=== PATIENT | female | born 1980 | race Caucasian/White ===

== ENCOUNTER 2016-09-11 01:58 | Emergency (ER) | payer MEDICAID ==
[2016-09-11] MEDS ORDERED: DIPHENHYDRAMINE HCL 50 MG CAPSULE PO ONE (02:39)
[2016-09-11 03:43] LABS: ABSOLUTE BASOPHILS # (AUTO) 0.1 10^3/uL (0.0-0.2); ABSOLUTE EOSINOPHILS # (AUTO) 0.1 10^3/uL (0.0-0.6); ABSOLUTE LYMPHOCYTES (AUTO) 2.1 10^3/uL (0.5-4.7); ABSOLUTE MONOCYTES (AUTO) 0.7 10^3/uL (0.1-1.4); ABSOLUTE NEUT (AUTO) 3.8 10^3/uL (1.7-8.2); EOSINOPHILS % (AUTO) 1.5 % (0-6); HEMATOCRIT 40.8 % (36.0-47.0); HEMOGLOBIN 14.1 g/dL (12.0-15.5); HGB HCT DIFFERENCE 1.5; LYMPHOCYTES % (AUTO) 31.4 % (13-45); MEAN CORPUSCULAR HEMOGLOBIN 32.5 pg (27.0-33.4); MEAN CORPUSCULAR HGB CONC 34.6 g/dL (32.0-36.0); MEAN CORPUSCULAR VOLUME 94 fl (80-97); MONOCYTES % (AUTO) 10.3 % (3-13); RED BLOOD COUNT 4.36 10^6/uL (3.72-5.28); RED CELL DISTRIBUTION WIDTH 12.1 % (11.5-14.0); SEGMENTED NEUTROPHILS % (AUTO) 55.8 % (42-78); WHITE BLOOD COUNT 6.8 10^3/uL (4.0-10.5)
[2016-09-11] MEDS ORDERED: HALOPERIDOL 2 MG TABLET PO ONE (04:04)
[2016-09-11 04:08] LABS: ALANINE AMINOTRANSFERASE 27 U/L (9-52); ALBUMIN 4.5 g/dL (3.5-5.0); ALCOHOL 22 mg/dL (NONE DETECTED); ALKALINE PHOSPHATASE 83 U/L (38-126); ANION GAP 16 (5-19); ASPARTATE AMINO TRANSFERASE 25 U/L (14-36); BILIRUBIN,TOTAL 0.4 mg/dL (0.2-1.3); BLOOD UREA NITROGEN 5 mg/dL (7-20); CALCIUM 9.2 mg/dL (8.4-10.2); CARBON DIOXIDE 21 mmol/L (22-30); CHLORIDE 105 mmol/L (98-107); CREATININE RESULT 0.63 mg/dL (0.52-1.25); GLUCOSE 121 mg/dL (75-110); POTASSIUM 3.8 mmol/L (3.6-5.0); SODIUM 141.7 mmol/L (137-145); TOTAL PROTEIN 7.1 g/dL (6.3-8.2)
[2016-09-11 04:18] LABS: APPEARANCE,URINE CLEAR; BILIRUBIN,URINE NEGATIVE (NEGATIVE); GLUCOSE, URINE NEGATIVE (NEGATIVE); KETONES,URINE NEGATIVE (NEGATIVE); LEUKOCYTE ESTERASE,URINE NEGATIVE (NEGATIVE); NITRITE,URINE NEGATIVE (NEGATIVE); PROTEIN,URINE NEGATIVE (NEGATIVE); URINE SPECIFIC GRAVITY 1.003; UROBILINOGEN,URINE NEGATIVE mg/dL (<2.0)
--- NOTE | 2016-09-11 06:05 | ER Document Report ---
ED General - General TRAVEL OUTSIDE OF THE [place] IN LAST 30 DAYS: No <AZRA ORTIZ - Last Filed: 09/11/16 07:49> <TORIBIO SANCHEZ - Last Filed: 09/11/16 11:59> - General Chief Complaint: Psych Problem Stated Complaint: PSYCH EVALUATION Notes: Patient is a 36-year-old female presents for complaint of agitation. She is brought by mobile rehabilitation worker. She's called mobile [employer] 2 times tonight. She has been getting in all quadrants with her neighbors because this has been very agitated and stress. She called please times. Apparently her neighbors filed IVC paperwork against her initially. This was approximately 12 hours ago. His was cleared. She then got another with the neighbors. She started cutting herself on her forearms. She then called [employer] again who brought her here. Patient says she was just stressed but situation. She says she's not suicidal or homicidal. She does takes psychiatric medications. She says she has been taking her medications. She says that she just needed the situation with her neighbors to stop and she now feels improved being that she is away from it. (AZRA ORTIZ) - Related Data Allergies/Adverse Reactions: Latex, Natural Rubber Allergy (Verified 03/21/16 06:55) Home Medications: Current Home Medications Diazepam [Diazepam] 1 tab PO DAILY 09/11/16 [History] Haloperidol [Haloperidol] 1 tab PO BID 09/11/16 [History] Lorazepam [Lorazepam] 1 tab PO BID 09/11/16 [History] Lurasidone HCl [Latuda] 1 tab PO DAILY 09/11/16 [History] Trazodone HCl 1 tab PO HSP PRN 09/11/16 [History] Past Medical History - Social History Smoking Status: Unknown if Ever Smoked Frequency of alcohol use: Occasional Drug Abuse: None Family History: Reviewed & Not Pertinent - Past Medical History Cardiac Medical History: Reports: Hx Hypertension Pulmonary Medical History: Reports: Hx Asthma, Hx COPD Psychiatric Medical History: Reports: Hx Anxiety, Hx Depression, Hx Post Traumatic Stress Disorder Past Surgical History: Reports: Hx Section - 1 - Immunizations Hx Diphtheria, Pertussis, Tetanus Vaccination: Yes - 2009 <AZRA ORTIZ - Last Filed: 09/11/16 07:49> Review of Systems <AZRA ORTIZ - Last Filed: 09/11/16 07:49> <TORIBIO SANCHEZ - Last Filed: 09/11/16 11:59> - Review of Systems Notes: My Normal Review Basic REVIEW OF SYSTEMS: CONSTITUTIONAL : Denies fever, chills, or sweats. Denies recent illness. EENT: Denies eye, ear, throat, or mouth pain or symptoms. Denies nasal or sinus congestion. RESPIRATORY: Denies cough, cold, or chest congestion. Denies shortness of breath, difficulty breathing, or wheezing. GASTROINTESTINAL: Denies abdominal pain. Denies nausea, vomiting, or diarrhea. Denies constipation. Last BM: MUSCULOSKELETAL: Denies neck or back pain or joint pain or swelling. SKIN: Abrasions to left forearm. NEUROLOGICAL: Denies altered mental status or loss of consciousness. Denies headache. Denies weakness or paralysis or loss of use of either side. Denies problems with gait or speech. Denies sensory or motor loss. PSYCHIATRIC: Agitation ALL OTHER SYSTEMS REVIEWED AND NEGATIVE. (AZRA ORTIZ) Physical Exam <AZRA ORTIZ - Last Filed: 09/11/16 07:49> <TORIBIO SANCHEZ - Last Filed: 09/11/16 11:59> - Vital signs Vitals: Temp Pulse BP Pulse Ox 97.8 F 101 H 135/87 H 96 09/11/16 02:17 09/11/16 02:17 09/11/16 02:17 09/11/16 02:17 (AZRA ORTIZ) (TORIBIO SANCHEZ) - Notes Notes: General Appearance: Well nourished, alert, cooperative, no acute distress, no obvious discomfort. Vitals: reviewed, See vital signs table. Head: no swelling or tenderness to the head Eyes: PERRL, EOMI, Conjuctiva clear Mouth: No decreasd moisture Neck: Supple, no neck tenderness, No thyromegaly Lungs: No wheezing, No rales, No rhonci, No accessory muscle use, good air exchange bilaterally. Heart: Normal rate, Regular rythm, No murmur, no rub Abdomen: Normal BS, soft, No rigidity, No abdominal tenderness, No guarding, no rebound, no abdominal masses, no organomegaly Extremities: strength 5/5 in all extremities, good pulses in all extremities, no swelling or tenderness in the extremities, no edema. Skin: Superficial abrasions left forearm that do not require suturing. Neuro: speech clear, oriented x 3, normal affect, responds appropriately to questions. (AZRA ORTIZ) Course - Laboratory Result Diagrams: 09/11/16 03:31 09/11/16 03:31 <AZRA ORTIZ - Last Filed: 09/11/16 07:49> - Laboratory Result Diagrams: 09/11/16 03:31 09/11/16 03:31 <TORIBIO SANCHEZ - Last Filed: 09/11/16 11:59> - Vital Signs Vital signs: Temp Pulse Resp BP Pulse Ox 98.0 F 102 H 15 110/63 94 09/11/16 06:45 09/11/16 06:45 09/11/16 06:45 09/11/16 06:45 09/11/16 06:45 (AZRA ORTIZ) (TORIBIO SANCHEZ) - Laboratory Laboratory results interpreted by me: 09/11/16 03:31 Carbon Dioxide 21 L BUN 5 L Glucose 121 H Salicylates < 1.0 L Acetaminophen < 10 L (AZRA ORTIZ) (TORIBIO SANCHEZ) - EKG Interpretation by Me Additional EKG results interpreted by me: 09/11/16 07:03 EKG is reviewed and interpreted by me. EKG shows sinus tachycardia with rate of [address] segment elevation or depression. No ischemic T wave inversions. WV interval, QRS duration, QTC intervals are within normal range. No old EKG available for comparison. (AZRA ORTIZ) - Transfer of Care Notes: 09/11/16 06:05 At this time patient is medically stable for psychiatric evaluation and placement. A first patient was very augmentative did not want to stay. Mobile rehabilitation worker is very concerned with the fact that she called multiple times and that her agitation was very severe at the house and that she was self cutting. She does have a history of suicide attempt many years ago. Informed patient that we will keep her. Informed her that she does not agree to stay than we would place an IVC paperwork. Patient is denied depression or suicidal ideations. Informed her that due to her significant agitation, calling mobile crisis twice, and self-induced cuts that I cannot let her go home without seeing psychiatry. Patient now seems understand this. Since then she's been very quiet, polite and cooperative. Her agitation seems to be resolving. We' ll have psychiatry evaluate her this morning. 09/11/16 06:09 09/11/16 06:20 09/11/16 07:43 09/11/16 07:45 I did go talk to the patient again. She is very cooperative. She is a little tearful at this time, but says this is because she is away from her cats that she is always worried about her cats being alone. At this time I do not feel need to Involuntary commit patient as she's not suicidal and she agrees to talk to psychiatry before going home. I initially informed her that she if she did not want to speak with psychiatry that I felt she would have to be IVC mainly because she was so agitated upon arrival was self cutting. Patient understood this and has been very cooperative sense and therefore I did not need to file IVC paperwork. (AZRA ORTIZ) Discharge <AZRA ORTIZ - Last Filed: 09/11/16 07:49> <TORIBIO SANCHEZ - Last Filed: 09/11/16 11:59> - Discharge Clinical Impression: Agitation, self induced cutting, abrasions, History of asthma Bipolar disorder Qualifiers: Active/Remission status: remission status unspecified Qualified Code(s): F31.9 - Bipolar disorder, unspecified Condition: Stable Disposition: HOME, SELF-CARE Instructions: Bipolar Disorder (OM), Asthma (OM) Additional Instructions: USE ALBUTEROL INHALER DIRECTED, NEEDED FOR ASTHMA SYMPTOMS. FOLLOW UP WITH [facility]. Prescriptions: Albuterol Sulfate [Proair HFA] 8.5 gm IH Q4 PRN #1 [email or web address] PRN Reason: Referrals: [facility] [Provider Group] - Follow up as needed
[2016-09-11] MEDS ORDERED: LORAZEPAM 1 MG TABLET PO ONE (07:01)
[2016-09-11] MEDS ORDERED: NICOTINE 14 MG/24 HR PATCH.TD24 TD ONE (07:45)
--- NOTE | 2016-09-11 09:02 | EKG REPORT ---
SEVERITY:- BORDERLINE ECG - SINUS TACHYCARDIA BORDERLINE T ABNORMALITIES, INFERIOR LEADS : Confirmed by: Marek Brady MD 11-Sep-2016 09:01:37
[2016-09-11 09:27] LABS: URINE BARBITURATES SCREEN NEGATIVE; URINE METHADONE SCREEN NEGATIVE; URINE PHENCYCLIDINE SCREEN NEGATIVE
--- NOTE | 2016-09-11 10:06 | ER Document Report ---
Doctor's Note Notes: 09/11/16 10:02 Medical rounds: Chart reviewed and patient interviewed briefly. Patient complains of discomfort from an umbilical hernia and difficulty breathing, states she has asthma. Both of these problems are long-standing she says. On examination, patient is in no distress. Lungs are clear, no wheezes. Umbilical hernia is freely reducible, not inflamed. Vital signs are stable, lab values are satisfactory. She is medically stable, pending psychosocial evaluation and disposition.
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
[2016-09-11 12:20] VITALS: BP 107/69
== END 2016-09-11 12:20 | disposition home or self-care (01) ==
LOC: ER 01:58
DX: S50.812A Abrasion of left forearm, initial encounter (principal); X78.9XXA Intentional self-harm by unspecified sharp object, initial encounter; F31.9 Bipolar disorder, unspecified; R00.0 Tachycardia, unspecified; K42.9 Umbilical hernia without obstruction or gangrene; J45.909 Unspecified asthma, uncomplicated; I10 Essential (primary) hypertension; J44.9 Chronic obstructive pulmonary disease, unspecified; Z79.899 Other long term (current) drug therapy; Z91.040 Latex allergy status
CPT/HCPCS: 93005; 99285; 36415; 84703; 85025; 80053; 81001; 93010; G0479 ×4; J3490 ×2; 80307

== ENCOUNTER → 2017-03-08 | Outpatient (CLI) | payer MEDICAID ==
--- NOTE | 2017-03-08 12:40 | RADIOLOGY REPORT (SQ) ---
EXAM DESCRIPTION: SHOULDER RIGHT 2 OR MORE VIEWS COMPLETED DATE/TIME: 03/08/2017 10:41 am REASON FOR STUDY: PAIN IN RIGHT SHOULDER M25.511 PAIN IN RIGHT SHOULDER COMPARISON: None. NUMBER OF VIEWS: Three views. TECHNIQUE: Internal rotation, external rotation, and Y view images acquired of the right shoulder. LIMITATIONS: None. FINDINGS: MINERALIZATION: Normal. BONES: No acute fracture or dislocation. No worrisome bone lesions. JOINTS: No glenohumeral dislocation. No acromioclavicular joint widening or bony spurring VISUALIZED LUNGS AND RIBS: No pneumothorax. No rib fracture. SOFT TISSUES: No radiopaque foreign body. OTHER: No other significant finding. IMPRESSION: NEGATIVE STUDY OF THE RIGHT SHOULDER. NO RADIOGRAPHIC EVIDENCE OF ACUTE INJURY. TECHNICAL DOCUMENTATION: JOB ID: [id number] [employer]- All Rights Reserved
== END ==
LOC: OD 10:14
PROVIDERS: ATTEND Family Medicine
DX: M25.511 Pain in right shoulder (principal)

== ENCOUNTER 2017-04-11 09:26 | Day surgery (SDC) | payer MEDICAID ==
[2017-04-07 10:40] LABS: HEMATOCRIT 42.6 % (36.0-47.0); HEMOGLOBIN 14.7 g/dL (12.0-15.5); HGB HCT DIFFERENCE 1.5; MEAN CORPUSCULAR HEMOGLOBIN 33.2 pg (27.0-33.4); MEAN CORPUSCULAR HGB CONC 34.6 g/dL (32.0-36.0); MEAN CORPUSCULAR VOLUME 96 fl (80-97); RED BLOOD COUNT 4.44 10^6/uL (3.72-5.28); RED CELL DISTRIBUTION WIDTH 12.4 % (11.5-14.0); WHITE BLOOD COUNT 7.1 10^3/uL (4.0-10.5)
[2017-04-07 10:57] LABS: ANION GAP 8 (5-19); BLOOD UREA NITROGEN 8 mg/dL (7-20); CALCIUM 9.2 mg/dL (8.4-10.2); CARBON DIOXIDE 25 mmol/L (22-30); CHLORIDE 106 mmol/L (98-107); CREATININE RESULT 0.76 mg/dL (0.52-1.25); GLUCOSE 101 mg/dL (75-110); POTASSIUM 4.4 mmol/L (3.6-5.0); SODIUM 139.1 mmol/L (137-145)
[~2017-04-11 09:26] MED LIST: CEFAZOLIN 1 GM/D5W RTU 1 GM/50 ML RTUPB IV PRN; LACTATED RINGERS 1000 ML IV PRN; LIDOCAINE 0.5% INJ-PF (5 MG/ML) 50 ML SDV SUBCUT PRN; SCOPOLAMINE HYDROBROMIDE 1.5 MG PATCH.TD72 TD PRN; SUCCINYLCHOLINE CHLORIDE INJ 200 MG/10 ML VIAL ONE
[2017-04-11] MEDS ORDERED: BUPIVACAINE HCL 0.25 % INJ/PF (2.5 MG/1 ML) 30 ML VIAL ONE (09:38)
[2017-04-11] MEDS ORDERED: DIAZEPAM 5 MG TABLET ONE (10:50)
[2017-04-11] MEDS ORDERED: FENTANYL CITRATE INJ/PF 250 MCG/5 ML AMPULE ONE (13:02)
[2017-04-11] MEDS ORDERED: HYDROMORPHONE HCL INJ/PF 2 MG/ML AMPULE ONE (13:02)
[2017-04-11] MEDS ORDERED: ACETAMINOPHEN 100 ML IV ONE (13:03)
[2017-04-11] MEDS ORDERED: PROPOFOL INJ 200 MG/20 ML VIAL IV ONE (13:03)
[2017-04-11] MEDS ORDERED: DEXMEDETOMIDINE INJ 80 MCG/20 ML VIAL IV ONE (13:03)
[2017-04-11] MEDS ORDERED: DIPHENHYDRAMINE HCL 50 MG/ML VIAL IV PRN (14:11)
[2017-04-11] MEDS ORDERED: OXYCODONE-ACETAMINOPHEN 5-325 MG TABLET PO PRN ×2 (14:11)
[2017-04-11] MEDS ORDERED: MORPHINE SULFATE 10 MG/ML INJ IV PRN ×2 (14:11→14:34)
[2017-04-11] MEDS ORDERED: PROMETHAZINE HCL INJ 25 MG/1 ML VIAL IV PRN ×2 (14:11)
[2017-04-11] MEDS ORDERED: MEPERIDINE HCL/PF INJ 25 MG/1 ML DISP.SYRIN IV PRN (14:11)
[2017-04-11] MEDS ORDERED: FENTANYL CITRATE INJ/PF 100 MCG/2 ML AMPUL IV PRN ×3 (14:11)
--- NOTE | 2017-04-11 14:30 | Operative Report ---
Operative Report DATE OF SURGERY: 04/11/17 PREOPERATIVE DIAGNOSIS: Ventral hernia POSTOPERATIVE DIAGNOSIS: Ventral hernia OPERATION: Open ventral hernia repair SURGEON: CONSTANZA BAUGH ANESTHESIA: GA TISSUE REMOVED OR ALTERED: Herniated preperitoneal fat COMPLICATIONS: None ESTIMATED BLOOD LOSS: Minimal INTRAOPERATIVE FINDINGS: 1.5 cm fascial defect about 3-4 cm above the umbilicus with herniated preperitoneal fat PROCEDURE: Informed consent was obtained. Patient was brought to the operating room. Prior to arrival I had marked the site where she felt the lump above her umbilicus at the midline. After satisfactory induction of general anesthesia patient's abdomen was prepped and draped in usual sterile fashion. A transverse incision was made at the region that the patient pointed to prior to surgery. Dissection was carried down herniated preperitoneal fat was noted it was dissected away from the surrounding structures it was partially excised by clamping dividing and tying and the remainder of it was tucked back into the preperitoneal space. The fascial defect measured about 1.5 cm in size it was large enough to allow me to place my little finger and feel for any other fascial defects. There were none. With the size of the fascial defect primary closure was performed using interrupted Ethibond sutures. the repair came together well without tension. The hernia repair was done in a transverse direction. Local anesthetic was injected. Hemostasis appeared excellent. Skin was closed with deep dermal interrupted Vicryl sutures followed by running subcuticular Monocryl suture. Patient tolerated procedure well with no apparent complications and was taken to the recovery area in stable condition.
[2017-04-11] MEDS ORDERED: RINGERS SOLUTION,LACTATED 1,000 ML IV PRN (14:34)
[2017-04-11] MEDS ORDERED: ONDANSETRON HCL INJ/PF 4 MG/2 ML SDV IV PRN (14:34)
--- NOTE | 2017-04-11 14:34 | PDOC DISCHARGE SUMMARY ---
Discharge Summary (SDC) - Discharge Final Diagnosis: Ventral hernia Date of Surgery: 04/11/17 Discharge Date: 04/11/17 Condition: Good Treatment or Instructions: Ventral hernia repair. May discharge patient home when met discharge criteria. Follow-up with me in 2 weeks. Stay active at home but avoid strenuous activity. May shower tomorrow night. Keep Steri-Strips on. Prescriptions: Hydrocodone/Acetaminophen [[place] 7.5-325 mg Tablet] 1 tab PO Q4HP PRN #30 tablet PRN Reason: For Pain Scale 3-5 Discharge Diet: As Tolerated Discharge Activity: Activity As Tolerated - Stay active but avoid strenuous activity. Report the Following to Your Physician Immediately: Fever over 101 Degrees, Unusual Bleeding, Redness, Drainage-Foul Smelling
[2017-04-11] MEDS: FENTANYL CITRATE INJ/PF 100 MCG/2 ML AMPUL ONE ×2 (14:35→14:40)
[2017-04-11] MEDS ORDERED: DIPHENHYDRAMINE HCL 25 MG CAPSULE ONE (15:56)
[2017-04-11] MEDS ORDERED: DIPHENHYDRAMINE HCL 25 MG CAPSULE PO ONE (15:57)
[2017-04-11 16:37] VITALS: BP 120/74
== END 2017-04-11 16:20 | disposition home or self-care (01) ==
LOC: OROUT 09:26
PROVIDERS: ATTEND Surgery
PROC: 0WQF0ZZ Repair Abdominal Wall, Open Approach (ICD-10-PCS; principal; 2017-04-11 11:30)
DX: K43.9 Ventral hernia without obstruction or gangrene (principal); F41.9 Anxiety disorder, unspecified; F90.9 Attention-deficit hyperactivity disorder, unspecified type; F43.10 Post-traumatic stress disorder, unspecified; J44.9 Chronic obstructive pulmonary disease, unspecified; F41.0 Panic disorder [episodic paroxysmal anxiety]; F17.210 Nicotine dependence, cigarettes, uncomplicated; Z79.51 Long term (current) use of inhaled steroids; Z79.899 Other long term (current) drug therapy
CPT/HCPCS: 36415; 85027; 81025; 80048; 88302 ×2; 49560; J0690; J3490 ×3; J3010 ×2; J1170; J0330; S0020; J2704; J0131; 752

== ENCOUNTER 2017-07-29 02:52 | Emergency (ER) | payer MEDICAID ==
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
--- NOTE | 2017-07-29 04:05 | RADIOLOGY REPORT (SQ) ---
EXAM DESCRIPTION: CT CERVICAL SPINE WITHOUT CLINICAL HISTORY: Fall. Injury to soft tissues adjacent to the right IJ. Neck pain. Intoxicated. COMPARISON: None available TECHNIQUE: Axial CT of the cervical spine obtained without contrast. FINDINGS: Alignment of the cervical spine is maintained without evidence of subluxation. The atlantoaxial, atlantodental, and occipitoatlantal intervals are preserved. No fracture identified. Vertebral body height preserved. Prevertebral soft tissues are unremarkable. Intervertebral disc height preserved. Visualized skull base is intact. No fracture of the visualized facial bones. Visualized mastoid air cells and paranasal sinuses are well aerated. Visualized thyroid is unremarkable. No cervical lymphadenopathy. No pneumothorax in the visualized lung apices. DLP: 465.23 mGy-cm IMPRESSION: 1. No acute fracture or subluxation of the cervical spine. This exam was performed according to our departmental dose-optimization program, which includes automated exposure control, adjustment of the mA and/or kV according to patient size and/or use of iterative reconstruction technique.
[2017-07-29 04:06] VITALS: BP 114/94
== END 2017-07-29 04:32 | disposition home or self-care (01) ==
LOC: ER 02:52
PROC: 0HQ1XZZ Repair Face Skin, External Approach (ICD-10-PCS; principal; 2017-07-29)
DX: S01.81XA Laceration without foreign body of other part of head, initial encounter (principal); S00.90XA Unspecified superficial injury of unspecified part of head, initial encounter; S09.90XA Unspecified injury of head, initial encounter; F10.10 Alcohol abuse, uncomplicated; W19.XXXA Unspecified fall, initial encounter; Z79.899 Other long term (current) drug therapy
CPT/HCPCS: 70450; 72125; 99284

== ENCOUNTER 2018-11-20 09:35 | Day surgery (SDC) | payer MEDICAID ==
[2018-11-16 11:07] LABS: ABSOLUTE BASOPHILS # (AUTO) 0.1 10^3/uL (0.0-0.2); ABSOLUTE EOSINOPHILS # (AUTO) 0.1 10^3/uL (0.0-0.6); ABSOLUTE LYMPHOCYTES (AUTO) 1.8 10^3/uL (0.5-4.7); ABSOLUTE MONOCYTES (AUTO) 0.7 10^3/uL (0.1-1.4); ABSOLUTE NEUT (AUTO) 4.1 10^3/uL (1.7-8.2); BASOPHILS % (AUTO) 0.9 % (0-2); EOSINOPHILS % (AUTO) 1.7 % (0-6); HEMATOCRIT 45.1 % (36.0-47.0); HEMOGLOBIN 15.9 g/dL (12.0-15.5); LYMPHOCYTES % (AUTO) 26.2 % (13-45); MEAN CORPUSCULAR HEMOGLOBIN 34.4 pg (27.0-33.4); MEAN CORPUSCULAR HGB CONC 35.3 g/dL (32.0-36.0); MEAN CORPUSCULAR VOLUME 97 fl (80-97); PLATELET COUNT 221 10^3/uL (150-450); RED BLOOD COUNT 4.63 10^6/uL (3.72-5.28); RED CELL DISTRIBUTION WIDTH 12.2 % (11.5-14.0); SEGMENTED NEUTROPHILS % (AUTO) 60.2 % (42-78); TOTAL CELLS COUNTED % (AUTO) 100 %; WHITE BLOOD COUNT 6.8 10^3/uL (4.0-10.5)
[2018-11-16 11:17] LABS: APPEARANCE,URINE CLOUDY; BILIRUBIN,URINE NEGATIVE (NEGATIVE); COLOR,URINE YELLOW; GLUCOSE, URINE NEGATIVE (NEGATIVE); KETONES,URINE TRACE mg/dL (NEGATIVE); LEUKOCYTE ESTERASE,URINE TRACE (NEGATIVE); NITRITE,URINE NEGATIVE (NEGATIVE); PROTEIN,URINE NEGATIVE (NEGATIVE)
[2018-11-16 11:33] LABS: ANION GAP 10 (5-19); BLOOD UREA NITROGEN 8 mg/dL (7-20); CARBON DIOXIDE 28 mmol/L (22-30); CHLORIDE 101 mmol/L (98-107); GLUCOSE 92 mg/dL (75-110); POTASSIUM 3.8 mmol/L (3.6-5.0); SODIUM 138.6 mmol/L (137-145)
--- NOTE | 2018-11-16 11:55 | RADIOLOGY REPORT (SQ) ---
EXAM DESCRIPTION: CHEST PA/LATERAL COMPLETED DATE/TIME: 11/16/2018 11:00 am REASON FOR STUDY: PRE-OP COMPARISON: Chest films 09/12/2013, 04/03/2013 EXAM PARAMETERS: NUMBER OF VIEWS: two views TECHNIQUE: Digital Frontal and Lateral radiographic views of the chest acquired. RADIATION DOSE: NA LIMITATIONS: none FINDINGS: LUNGS AND PLEURA: No opacities, masses or pneumothorax. No pleural effusion. MEDIASTINUM AND HILAR STRUCTURES: No masses or contour abnormalities. HEART AND VASCULAR STRUCTURES: Heart normal size. No evidence for failure. BONES: No acute findings. HARDWARE: None in the chest. OTHER: No other significant finding. IMPRESSION: NO SIGNIFICANT RADIOGRAPHIC FINDING IN THE CHEST. TECHNICAL DOCUMENTATION: JOB ID: [id number] 1886 [employer]- All Rights Reserved Reading location - IP/workstation name: [email or web address]
--- NOTE | 2018-11-16 20:53 | EKG REPORT ---
SEVERITY:- BORDERLINE ECG - SINUS ARRHYTHMIA, RATE [id number] PROBABLE LEFT ATRIAL ABNORMALITY : Confirmed by: Susan Driver MD 16-Nov-2018 20:52:41
[~2018-11-20 09:35] MED LIST changes: -CEFAZOLIN 1 GM/D5W RTU 1 GM/50 ML RTUPB IV PRN; -SCOPOLAMINE HYDROBROMIDE 1.5 MG PATCH.TD72 TD PRN; -SUCCINYLCHOLINE CHLORIDE INJ 200 MG/10 ML VIAL ONE
[2018-11-20] MEDS ORDERED: ALBUTEROL SULFATE 0.083% NEB 2.5 MG/3 ML AMPUL NEB ONE (10:39)
[2018-11-20] MEDS ORDERED: ONDANSETRON HCL INJ/PF 4 MG/2 ML SDV ONE (10:39)
[2018-11-20] MEDS ORDERED: MIDAZOLAM 2 MG/2 ML INJ ONE (10:39)
[2018-11-20] MEDS ORDERED: MEPERIDINE HCL/PF INJ 25 MG/1 ML DISP.SYRIN IV PRN (12:41)
[2018-11-20] MEDS ORDERED: DIPHENHYDRAMINE HCL 50 MG/ML VIAL IV PRN (12:41)
[2018-11-20] MEDS ORDERED: PROMETHAZINE HCL INJ 25 MG/1 ML VIAL IV PRN ×2 (12:41)
[2018-11-20] MEDS ORDERED: MORPHINE SULFATE 10 MG/ML INJ IV PRN (12:41)
[2018-11-20] MEDS ORDERED: FENTANYL CITRATE INJ/PF 100 MCG/2 ML AMPUL IV PRN ×3 (12:41)
--- NOTE | 2018-11-20 12:58 | Discharge Summary ---
Discharge Summary (SDC) - Discharge Final Diagnosis: Inanition, nausea and vomiting, gastritis, duodenitis. Date of Surgery: 11/20/18 Discharge Date: 11/20/18 Condition: Stable Treatment or Instructions: Discharge home. Diet: Clear liquids times 24 hours, then regular diet after 24 hours. Activity: Nonstrenuous. Follow-up with me in 7-10 days. She should avoid caffeine, nicotine, NSAIDs, steroids, soda pop, and alcohol. Referrals: LEATHA SHIN DO [Primary Care Provider] - Discharge Diet: As Tolerated Respiratory Treatments at Home: Deep Breathing/Coughing, Incentive Spirometer Discharge Activity: Balance Activity w/Rest Home Care Assistance: Home Health - Tube feeding, home health already arranged Report the Following to Your Physician Immediately: Shortness of Breath, Nausea, Vomiting, Increase in Pain, Fever over 101 Degrees, Unusual Bleeding, Redness - The
[2018-11-20] MEDS ORDERED: FENTANYL CITRATE INJ/PF 100 MCG/2 ML AMPUL ONE (13:01)
--- NOTE | 2018-11-20 13:04 | Operative Report ---
Nonrecallable Operative Report DATE OF SURGERY: 11/20/18 PREOPERATIVE DIAGNOSIS: Inanition, psychogenic nausea and vomiting. POSTOPERATIVE DIAGNOSIS: 1. Inanition, nausea and vomiting. 2. Gastritis. 3. Duodenitis. OPERATION: Percutaneous endoscopic gastrostomy. SURGEON: RADHA FUNES ANESTHESIA: LMAC TISSUE REMOVED OR ALTERED: 1. Antral biopsy. 2. Duodenal bulb. COMPLICATIONS: None apparent ESTIMATED BLOOD LOSS: Minimal PROCEDURE: Drains/implants: 20 Sami gastrostomy. Procedure in detail: After informed consent was obtained, the patient was brought to the operating room and laid in the supine position. The endoscope was passed down the oropharynx, down the esophagus, and into the stomach. The s tomach was insufflated with air. Immediately there was noted to be diffuse gastritis throughout the stomach. It extended from the cardia to the antrum. The scope was pushed through the antrum into the first and second portions of the duodenum. The second portion of the duodenum appeared normal, however the first portion of the duodenum had obvious duodenitis present. Biopsy was taken at the duodenal bulb, as well as in the antrum. Retroflexion maneuver was performed in the stomach noting no significant hiatal hernias. The scope was pulled up into the distal esophagus, confirming that there was no significant reflux esophagitis. The scope was pushed back into the stomach. An appropriate place on the stomach was identified for placement of the percutaneous endoscopic gastrostomy. This was done with one-to-one ballottement, as well as transillumination. Next, the abdomen was prepped and draped in a normal sterile fashion. 1% lidocaine was used to anesthetize the skin of the anterior abdominal wall. An 11 blade scalpel was used to create a small incision. Pressure was placed on the anterior abdominal wall with 2 fingers. The needle was then inserted into the lumen of the stomach. This was confirmed with endoscopic visualization. The wire was then inserted through the needle. The wire was grasped with a snare and pulled out through the mouth. The PEG tube was attached to the wire and pulled down the esophagus and through the anterior abdominal wall. This was done, leaving the bumper within the lumen of the stomach. The external grommet was placed on the tube, and the remainder of the tube was assembled. The tube was found to sit at approximately 2 cm at the skin. A dressing was placed, and the procedure was concluded. All sponge, instrument, and needle counts were correct x2. Condition: Stable.
[2018-11-20] MEDS ORDERED: LORAZEPAM INJ 2 MG/1 ML VIAL ONE (13:06)
[2018-11-20] MEDS ORDERED: PROPOFOL INJ 200 MG/20 ML VIAL IV ONE (13:22)
[2018-11-20] MEDS ORDERED: SCOPOLAMINE HYDROBROMIDE 1.5 MG PATCH.TD72 ONE (13:40)
[2018-11-20] MEDS ORDERED: BENZOCAINE/MENTHOL SORE THROAT LOZENGE BUCCAL PRN (14:34)
[2018-11-20 15:17] VITALS: BP 98/66
== END 2018-11-20 15:15 | disposition home health service (06) ==
LOC: OROUT 09:35
PROVIDERS: ATTEND Surgery
DX: K29.70 Gastritis, unspecified, without bleeding (principal); K29.80 Duodenitis without bleeding; R63.4 Abnormal weight loss; J45.909 Unspecified asthma, uncomplicated; G89.29 Other chronic pain; M54.9 Dorsalgia, unspecified; F17.210 Nicotine dependence, cigarettes, uncomplicated; Z68.21 Body mass index [BMI] 21.0-21.9, adult; Z79.51 Long term (current) use of inhaled steroids; Z79.899 Other long term (current) drug therapy; Z88.5 Allergy status to narcotic agent
CPT/HCPCS: 93010; 93005; 43239; 43246; 36415; 85025; 81025; 80048; 81001; 88342 ×2; 88305 ×2; 71046; J2250; J3010; J3490; J2060; J2405; J2704; 731

== ENCOUNTER 2019-01-15 07:40 | Day surgery (SDC) | payer MEDICAID ==
[~2019-01-15 07:40] MED LIST changes: +IBUPROFEN 800 MG in NORMAL SALINE 250 ML IV PRN; -LACTATED RINGERS 1000 ML IV PRN; -LIDOCAINE 0.5% INJ-PF (5 MG/ML) 50 ML SDV SUBCUT PRN; +PREGABALIN 50 MG CAPSULE PO PRN
[2019-01-15] MEDS ORDERED: PREGABALIN 50 MG CAPSULE ONE (08:27)
[2019-01-15] MEDS ORDERED: ALBUTEROL SULFATE 0.083% NEB 2.5 MG/3 ML AMPUL NEB ONE (08:50)
[2019-01-15] MEDS ORDERED: KETAMINE HCL INJ 500 MG/10 ML VIAL ONE (11:48)
[2019-01-15] MEDS ORDERED: PROPOFOL INJ 200 MG/20 ML VIAL IV ONE ×2 (11:49→12:09)
[2019-01-15] MEDS ORDERED: MIDAZOLAM 2 MG/2 ML INJ ONE (11:49)
[2019-01-15] MEDS ORDERED: FENTANYL CITRATE INJ/PF 100 MCG/2 ML AMPUL IV PRN ×3 (12:18)
[2019-01-15] MEDS: LORAZEPAM INJ 2 MG/1 ML VIAL ONE ×2 (12:40→12:50)
[2019-01-15] MEDS ORDERED: LORAZEPAM INJ 2 MG/1 ML VIAL IV PRN (13:37)
[2019-01-15 14:53] VITALS: BP 116/78
--- NOTE | 2019-01-16 14:26 | Discharge Summary ---
Discharge Summary (SDC) - Discharge Final Diagnosis: Dysfunctional gastrostomy, hypertrophic granulation tissue of the abdominal skin. Date of Surgery: 01/15/19 Discharge Date: 01/15/19 Condition: Stable Forms: ASU Anesthesia D/C Instruction, Discharge POC-Surgical Service Referrals: RADHA FUNES MD [ACTIVE STAFF] - (Follow up as needed) Discharge Diet: As Tolerated, Tube Feeding (Comments) Respiratory Treatments at Home: Deep Breathing/Coughing, Incentive Spirometer Discharge Activity: Balance Activity w/Rest Home Care Assistance: None Needed Report the Following to Your Physician Immediately: Shortness of Breath, Nausea, Vomiting, Increase in Pain, Fever over 101 Degrees, Unusual Bleeding
--- NOTE | 2019-01-16 14:33 | Operative Report ---
Nonrecallable Operative Report DATE OF SURGERY: 01/15/19 PREOPERATIVE DIAGNOSIS: 1. Dysfunctional gastrostomy. 2. Hypertrophic granulation tissue of the abdominal wall. POSTOPERATIVE DIAGNOSIS: Same as above OPERATION: 1. Removal of dysfunctional gastrostomy. 2. Placement of low- profile Nader button gastrostomy. 3. Electrocauterization of hypertrophic granulation tissue of the abdominal skin. 4. EGD SURGEON: RADHA FUNES ANESTHESIA: LMAC TISSUE REMOVED OR ALTERED: None COMPLICATIONS: None apparent ESTIMATED BLOOD LOSS: Minimal PROCEDURE: Drains/implants: 3 cm, 24 Yi Nader button. Procedure in detail: After informed consent was obtained, the patient was brought to the operating room and laid in the semi-upright position. There was a large amount of hypertrophic granulation tissue around the gastrostomy. After adequate anesthesia was obtained, Bovie electrocautery was used to cauterize this hypertrophic granulation tissue. After this was completed, attention was turned to removal of the gastrostomy. The flexible gastroscope was passed down the oropharynx, down the esophagus, and into the stomach. The stomach was insufflated with air. The dysfunctional gastrostomy bumper was easily identified. This was removed under direct endoscopic visualization. Next, the Nader button was inserted through the gastrostomy site. The balloon was seen within the lumen of the stomach, via the endoscope. The balloon was inflated. The Nader button was then successfully placed. There was noted to be a mild amount of gastritis throughout the body and antrum of the stomach. Once the Nader button was in place, the gastroscope was pulled out the hiatus and into the esophagus. No masses, lesions, or other abnormalities were found throughout the esophagus. The scope was removed from the oropharynx, and this portion of the procedure was concluded. A drain sponge was placed around the Nader button. After the dressing was fashioned, the procedure was concluded. All sponge, instrument, and needle counts were correct x2. Condition: Stable.
== END 2019-01-15 14:30 | disposition home or self-care (01) ==
LOC: OROUT 07:40
PROVIDERS: ATTEND Surgery
DX: K94.23 Gastrostomy malfunction (principal); K66.8 Other specified disorders of peritoneum; J45.909 Unspecified asthma, uncomplicated; R63.4 Abnormal weight loss; F17.210 Nicotine dependence, cigarettes, uncomplicated; Z79.899 Other long term (current) drug therapy; Z79.51 Long term (current) use of inhaled steroids
CPT/HCPCS: 43235; 36415; 84703; 94640; 43762; 17110; J2250; J3490 ×2; J2060; J7050; J2704; J1741; 731

== ENCOUNTER 2019-10-26 08:20 | Emergency (ER) | payer MEDICAID ==
--- NOTE | 2019-10-26 09:41 | ER Document Report ---
ED Flu Like - General Chief Complaint: Flu Symptoms Stated Complaint: COUGH,SORE THROAT Time Seen by Provider: 10/26/19 09:04 Primary Care Provider: LEATHA SHIN DO [Primary Care Provider] - Follow up as needed Mode of Arrival: Ambulatory Information source: Patient Notes: 39-year-old woman presents to the emergency department with flulike illness. Patient complains of muscle aches and pains with associated fatigue and weakness. She also has a history of thyroid problems which she is not receiving primary care for. She complains of ear fullness and sinus related symptoms. Temperature was 99 last night. TRAVEL OUTSIDE OF THE [place] IN LAST 30 DAYS: No - Related Data Allergies/Adverse Reactions: beeswax Allergy (Verified 10/26/19 08:30) Latex, Natural Rubber Allergy (Verified 10/26/19 08:30) acetaminophen [From Percocet] Adverse Reaction (Verified 10/26/19 08:30) Pruritis grass pollen Adverse Reaction (Verified 10/26/19 08:30) oxycodone [From Percocet] Adverse Reaction (Verified 10/26/19 08:30) Pruritis Past Medical History - Social History Smoking Status: Current Every Day Smoker Chew tobacco use (# tins/day): No Frequency of alcohol use: Occasional Drug Abuse: None Family History: Reviewed & Not Pertinent Patient has suicidal ideation: No Patient has homicidal ideation: No - Past Medical History Cardiac Medical History: Denies: Hx Coronary Artery Disease, Hx Heart Attack, Hx Hypertension Pulmonary Medical History: Reports: Hx Asthma - MODERATE Denies: Hx Bronchitis, Hx COPD, Hx Pneumonia Neurological Medical History: Denies: Hx Cerebrovascular Accident, Hx Seizures Renal/ Medical History: Denies: Hx Peritoneal Dialysis Musculoskeletal Medical History: Denies Hx Arthritis Psychiatric Medical History: Reports: Hx Anxiety, Hx Depression, Hx Post Traumatic Stress Disorder Past Surgical History: Reports: Hx Section - Immunizations Hx Diphtheria, Pertussis, Tetanus Vaccination: Yes Review of Systems - Review of Systems Notes: Constitutional: + Fatigue HENT: + Sinus pressure, + ear pain. Eyes: Negative for visual changes. Cardiovascular: Negative for chest pain. Respiratory: Negative for shortness of breath. Gastrointestinal: Negative for abdominal pain, vomiting or diarrhea. Genitourinary: Negative for dysuria. Musculoskeletal: + Myalgia, + back pain. Skin: Negative for rash. Neurological: Negative for headaches, weakness or numbness. 10 point ROS negative except as marked above and in HPI. Physical Exam - Vital signs Vitals: Temp Pulse Resp BP Pulse Ox 98.1 F 87 18 128/89 H 100 10/26/19 08:21 10/26/19 08:21 10/26/19 08:21 10/26/19 08:21 10/26/19 08:21 - Notes Notes: PHYSICAL EXAMINATION: Physical Exam: General: Well-nourished well-developed 39-year-old woman in no acute distress HEENT: NC/AT, pupils equal round and reactive to light, MM moist,nares clear, TMs with air-fluid levels and dullness bilaterally, sinus pressure, tenderness Neck: supple, no adenopathy, no masses. Lungs: clear, no wheezing, no rales no rhonchi CVS: Regular, rate, and rhythm no murmur gallop or rub Abdomen: Soft, active, nontender, no masses, no hepatosplenomegaly Ext: No edema, clubbing or cyanosis. Neuro: Alert and responsive, moving all 4 extremities on command, cranial nerves intact. Skin: Intact no open lesions, no rash PSYCH: Normal mood, normal affect. Course - Re-evaluation Re-evalutation: 10/26/19 12:17 Influenza testing was negative T4 TSH were performed a T4 is low. I have asked the patient that she would follow-up with an outpatient doctor regarding her thyroid management. She is given antibiotics amoxicillin, prednisone and encouraged to push fluids during the treatment for her ear problems. Patient acknowledges understanding this plan and is discharged. - Vital Signs Vital signs: Temp Pulse Resp BP Pulse Ox 98.1 F 87 18 128/89 H 100 10/26/19 08:21 10/26/19 08:21 10/26/19 08:21 10/26/19 08:21 10/26/19 08:21 - Laboratory Laboratory results interpreted by me: 10/26/19 09:14 Free T4 0.70 L Discharge - Discharge Clinical Impression: Bilateral serous otitis media Qualifiers: Chronicity: acute Recurrence: not specified as recurrent Qualified Code(s): H65.03 - Acute serous otitis media, bilateral Sinusitis Qualifiers: Sinusitis location: maxillary Chronicity: acute Recurrence: not specified as recurrent Qualified Code(s): J01.00 - Acute maxillary sinusitis, unspecified Condition: Good Disposition: HOME, SELF-CARE Instructions: Acetaminophen Additional Instructions: You are diagnosed with sinusitis and bilateral ear fluid, antibiotics and steroids are being prescribed your T4 was low, I suggest that you follow-up with a primary care doctor. Information is given below for a clinic which might accept you as a patient. You might return to the emergency department if your symptoms are not improving or if you have other concerns or difficulties. Prescriptions: Amoxicillin 1 tab PO TID #30 tab Prednisone [Deltasone 20 mg Tablet] 1 tab PO BID 5 Days #10 tablet Referrals: LEATHA SHIN DO [Primary Care Provider] - Follow up as needed
[2019-10-26 09:48] LABS: A TYPE INFLUENZA AG NEGATIVE (NEGATIVE); B INFLUENZA AG NEGATIVE (NEGATIVE)
[2019-10-26 10:25] LABS: FREE T4 (FREE THYROXINE) 0.7 ng/dL (0.78-2.19)
[2019-10-26 10:39] LABS: THYROID STIMULATING HORMONE 3.82 uIU/mL (0.47-4.68)
[2019-10-26 12:21] VITALS: BP 122/71
== END 2019-10-26 12:29 | disposition home or self-care (01) ==
LOC: ER 08:20
DX: H65.03 Acute serous otitis media, bilateral (principal); J01.00 Acute maxillary sinusitis, unspecified; M79.10 Myalgia, unspecified site; R53.83 Other fatigue; R53.1 Weakness; J45.909 Unspecified asthma, uncomplicated; H92.09 Otalgia, unspecified ear; M54.9 Dorsalgia, unspecified; F17.200 Nicotine dependence, unspecified, uncomplicated; Z91.040 Latex allergy status; Z91.048 Other nonmedicinal substance allergy status
CPT/HCPCS: 36415; 84439; 84443; 87804; 99283

== ENCOUNTER 2019-11-25 11:31 | Emergency (ER) | payer MEDICAID ==
[2019-11-25 12:07] VITALS: BP 114/83
--- NOTE | 2019-11-25 12:41 | ER Document Report ---
ED Medical Screen (RME) - General Stated Complaint: G-TUBE PROBLEMS/NAUSEA/VOMITING Time Seen by Provider: 11/25/19 12:35 Primary Care Provider: LEATHA SHIN DO [Primary Care Provider] - Follow up as needed Mode of Arrival: Wheelchair Information source: Patient Notes: 39-year-old female presents emergency department with concerns over her J-tube. Reports she is had a J-tube for about a year. Reports it was placed because she has some type of autoimmune disease and she could not eat. She reports for the past 2 weeks she has been regurgitating and complains of constipation. Reports she has had to use numerous laxatives to have a bowel movement. Reports bowel movement this morning. Unknown fever. Also complains of abdominal distention. Reports her joints always hurt but that pain has increased. I have greeted and performed a rapid initial assessment of this patient. A comprehensive ED assessment and evaluation of the patient, analysis of test results and completion of the medical decision making process will be conducted by additional ED providers. TRAVEL OUTSIDE OF THE [place] IN LAST 30 DAYS: No - Related Data Allergies/Adverse Reactions: beeswax Allergy (Verified 11/25/19 12:34) Latex, Natural Rubber Allergy (Verified 11/25/19 12:34) acetaminophen [From Percocet] Adverse Reaction (Verified 11/25/19 12:34) Pruritis grass pollen Adverse Reaction (Verified 11/25/19 12:34) oxycodone [From Percocet] Adverse Reaction (Verified 11/25/19 12:34) Pruritis Past Medical History - Past Medical History Cardiac Medical History: Denies: Hx Coronary Artery Disease, Hx Heart Attack, Hx Hypertension Pulmonary Medical History: Reports: Hx Asthma - MODERATE Denies: Hx Bronchitis, Hx COPD, Hx Pneumonia Neurological Medical History: Denies: Hx Cerebrovascular Accident, Hx Seizures Renal/ Medical History: Denies: Hx Peritoneal Dialysis Musculoskeltal Medical History: Denies Hx Arthritis Psychiatric Medical History: Reports: Hx Anxiety, Hx Depression, Hx Post Traumatic Stress Disorder Past Surgical History: Reports: Hx Section - Immunizations Hx Diphtheria, Pertussis, Tetanus Vaccination: Yes Physical Exam - Vital signs Vitals: Temp Pulse Resp BP Pulse Ox 98.8 F 95 16 114/83 97 11/25/19 12:05 11/25/19 12:05 11/25/19 12:05 11/25/19 12:05 11/25/19 12:05 Course - Vital Signs Vital signs: Temp Pulse Resp BP Pulse Ox 98.8 F 95 16 114/83 97 11/25/19 12:05 11/25/19 12:05 11/25/19 12:05 11/25/19 12:05 11/25/19 12:05 Doctor's Discharge - Discharge Referrals: LEATHA SHIN DO [Primary Care Provider] - Follow up as needed
[2019-11-25 13:15] LABS: ABSOLUTE EOSINOPHILS # (AUTO) 0.1 10^3/uL (0.0-0.6); ABSOLUTE LYMPHOCYTES (AUTO) 1.6 10^3/uL (0.5-4.7); ABSOLUTE MONOCYTES (AUTO) 0.7 10^3/uL (0.1-1.4); ABSOLUTE NEUT (AUTO) 4.6 10^3/uL (1.7-8.2); BASOPHILS % (AUTO) 0.7 % (0-2); HEMATOCRIT 42.6 % (36.0-47.0); LYMPHOCYTES % (AUTO) 22.8 % (13-45); MEAN CORPUSCULAR HEMOGLOBIN 34.1 pg (27.0-33.4); MEAN CORPUSCULAR HGB CONC 35.1 g/dL (32.0-36.0); MEAN CORPUSCULAR VOLUME 97 fl (80-97); MONOCYTES % (AUTO) 9.7 % (3-13); PLATELET COUNT 318 10^3/uL (150-450); RED BLOOD COUNT 4.38 10^6/uL (3.72-5.28); SEGMENTED NEUTROPHILS % (AUTO) 64.8 % (42-78); TOTAL CELLS COUNTED % (AUTO) 100 %; WHITE BLOOD COUNT 7.1 10^3/uL (4.0-10.5)
[2019-11-25 13:30] LABS: APPEARANCE,URINE SLIGHTLY-CLOUDY; BILIRUBIN,URINE NEGATIVE (NEGATIVE); COLOR,URINE YELLOW; GLUCOSE, URINE NEGATIVE (NEGATIVE); KETONES,URINE NEGATIVE (NEGATIVE); LEUKOCYTE ESTERASE,URINE NEGATIVE (NEGATIVE); NITRITE,URINE NEGATIVE (NEGATIVE); PROTEIN,URINE NEGATIVE (NEGATIVE); URINE SPECIFIC GRAVITY 1.024; UROBILINOGEN,URINE NEGATIVE mg/dL (<2.0)
[2019-11-25 13:42] LABS: ALBUMIN 4.3 g/dL (3.5-5.0); ALKALINE PHOSPHATASE 78 U/L (38-126); ANION GAP 12 (5-19); ASPARTATE AMINO TRANSFERASE 31 U/L (14-36); BILIRUBIN,DIRECT 0.3 mg/dL (0.0-0.4); BILIRUBIN,TOTAL 0.3 mg/dL (0.2-1.3); BLOOD UREA NITROGEN 13 mg/dL (7-20); C-REACTIVE PROTEIN 5.6 mg/L (<10.0); CALCIUM 9.7 mg/dL (8.4-10.2); CARBON DIOXIDE 22 mmol/L (22-30); CHLORIDE 104 mmol/L (98-107); GLUCOSE 93 mg/dL (75-110); POTASSIUM 4.6 mmol/L (3.6-5.0); TOTAL PROTEIN 7.6 g/dL (6.3-8.2)
--- NOTE | 2019-11-25 13:47 | ER Document Report ---
ED GI/ - General Chief Complaint: Abdominal Distention Stated Complaint: G-TUBE PROBLEMS/NAUSEA/VOMITING Time Seen by Provider: 11/25/19 12:35 Primary Care Provider: LEATHA SHIN DO [Primary Care Provider] - Follow up as needed Mode of Arrival: Wheelchair Notes: HPI: Patient is a 39-year-old female with past medical history as recorded including a G-tube placed 2 years ago for an unknown reason according to the patient. She states she had an endoscopy and colonoscopy as well as imaging prior to the G-tube placement but is unsure of any results. She states she was just not eating as much. She still takes p.o. as well as G-tube feeds. She states for the last 3 weeks she has had some abdominal distention with some intermittent nausea and vomiting. She is constipated and only relieved with laxatives. She states that the pain is nonradiating and is to the epigastric region only. No lower abdominal pain. No dysuria or fevers. No runny nose, congestion, or cough. ROS: See HPI All other review of systems reviewed and otherwise negative Reviewed vital signs and nursing note as charted by RN. PHYSICAL EXAM: CONSTITUTIONAL: Alert and oriented and responds appropriately to questions. Well-appearing; well-nourished HEAD: Normocephalic; atraumatic EYES: Sclerae non-icteric ENT: Normal nose; no rhinorrhea; moist mucous membranes; pharynx without lesions noted NECK: Supple without meningismus; non-tender; no cervical lymphadenopathy, no masses CARD: Regular rate and rhythm; no murmurs; symmetric distal pulses RESP: Normal chest excursion without splinting or tachypnea; breath sounds clear and equal bilaterally ABD/GI: Abdomen on my exam is not appreciably distended; soft, very mildly tender to the epigastric region with no rebound or guarding; around the insertion tube site there is no erythema, drainage, or tenderness; no palpable organomegaly or masses BACK: The back appears normal and is non-tender to palpation EXT: Normal ROM in all joints; non-tender to palpation; no edema SKIN: No acute lesions noted NEURO: CN 2-12 intact; 5/5 bilateral upper and lower extremity strength with sensation intact to light touch PSYCH: The patient's mood and manner are appropriate. Grooming and personal hygiene are appropriate. TRAVEL OUTSIDE OF THE [place] IN LAST 30 DAYS: No - Related Data Allergies/Adverse Reactions: beeswax Allergy (Verified 11/25/19 12:34) Latex, Natural Rubber Allergy (Verified 11/25/19 12:34) acetaminophen [From Percocet] Adverse Reaction (Verified 11/25/19 12:34) Pruritis grass pollen Adverse Reaction (Verified 11/25/19 12:34) oxycodone [From Percocet] Adverse Reaction (Verified 11/25/19 12:34) Pruritis Home Medications: realo/PG Past Medical History - General Information source: Patient - Social History Smoking Status: Current Every Day Smoker Chew tobacco use (# tins/day): No Frequency of alcohol use: Occasional Drug Abuse: None Family History: Reviewed & Not Pertinent Patient has suicidal ideation: No Patient has homicidal ideation: No - Past Medical History Cardiac Medical History: Denies: Hx Coronary Artery Disease, Hx Heart Attack, Hx Hypertension Pulmonary Medical History: Reports: Hx Asthma - MODERATE Denies: Hx Bronchitis, Hx COPD, Hx Pneumonia Neurological Medical History: Denies: Hx Cerebrovascular Accident, Hx Seizures Renal/ Medical History: Denies: Hx Peritoneal Dialysis Musculoskeletal Medical History: Denies Hx Arthritis Psychiatric Medical History: Reports: Hx Anxiety, Hx Depression, Hx Post Traumatic Stress Disorder Past Surgical History: Reports: Hx Section - Immunizations Hx Diphtheria, Pertussis, Tetanus Vaccination: Yes Physical Exam - Vital signs Vitals: Temp Pulse Resp BP Pulse Ox 98.8 F 95 16 114/83 97 11/25/19 12:05 11/25/19 12:05 11/25/19 12:05 11/25/19 12:05 11/25/19 12:05 Course - Re-evaluation Re-evalutation: 11/25/19 13:45 Given the above history and physical we will obtain basic labs, liver panel and lipase, and a CT scan of the abdomen and pelvis. I am attempting to call the patient's primary care physician to further evaluate the exact need/findings of the endoscopy and G-tube placement. Patient states she believes she has a rheumatology condition and therefore the CRP and ESR was ordered in triage. 11/25/19 14:05 I was able to call the patient's primary care physician and discussed the patien t's previous and chronic conditions. 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 11/25/19 14:55 Labs, liver panel, lipase, and CT scan of the abdomen and pelvis as recorded. Patient's pain is mostly to the epigastric region. No lower abdominal tenderness. I do not believe further imaging or laboratory work is necessary at this time. Patient will be discharged home with strict return precautions and follow-up with the primary care provider. - Vital Signs Vital signs: Temp Pulse Resp BP Pulse Ox 98.8 F 95 16 114/83 97 11/25/19 12:05 11/25/19 12:05 11/25/19 12:05 11/25/19 12:05 11/25/19 12:05 - Laboratory Result Diagrams: 11/25/19 12:50 11/25/19 12:50 Laboratory results interpreted by me: 11/25/19 11/25/19 12:50 12:50 MCH 34.1 H Urine Ascorbic Acid 40 H Discharge - Discharge Clinical Impression: Abdominal bloating Condition: Good Disposition: HOME, SELF-CARE Additional Instructions: Come back immediately with any increased bloating, fevers, vomiting, blood in the vomit or diarrhea, or any other acute problems. Please make sure that she follow-up with the primary care physician for reassessment as discussed. Referrals: LEATHA SHIN DO [Primary Care Provider] - Follow up as needed
[2019-11-25 13:48] LABS: ERYTHROCYTE SEDIMENTATION RATE 14 mm/hr (0-20)
--- NOTE | 2019-11-25 14:46 | RADIOLOGY REPORT (SQ) ---
EXAM DESCRIPTION: CT ABD/PELVIS WITH IV ONLY COMPLETED DATE/TIME: 11/25/2019 2:33 pm REASON FOR STUDY: 40; abdominal COMPARISON: None. TECHNIQUE: CT scan of the abdomen and pelvis performed using helical scanning technique with dynamic intravenous contrast injection. No oral contrast. Images reviewed with lung, soft tissue, and bone windows. Reconstructed coronal and sagittal MPR images reviewed. Delayed images for evaluation of the urinary system also acquired. All images stored on PACS. All CT scanners at this facility use dose modulation, iterative reconstruction, and/or weight based d osing when appropriate to reduce radiation dose to as low as reasonably achievable (ALARA). [facility]: Dose Right [facility]: CareDose [facility]: Dose Right [facility]: Teradose 4D [facility]: [email or web address] CONTRAST TYPE AND DOSE: contrast/concentration: Isovue 350.00 mg/ml; Total Contrast Delivered: 75.0 ml; Total Saline Delivered: 67.0 ml RENAL FUNCTION: BUN 13, creatinine 0.54 RADIATION DOSE: CT Rad equipment meets quality standard of care and radiation dose reduction techniq ues were employed. CTDIvol: NaN - NaN mGy. DLP: 0 mGy-cm.. LIMITATIONS: None. FINDINGS: LOWER CHEST: No significant findings. No nodules or infiltrates. LIVER: Normal size. No masses. No dilated ducts. SPLEEN: Normal size. No focal lesions. PANCREAS: No masses. No significant calcifications. No adjacent inflammation or peripancreatic fluid collections. Pancreatic duct not dilated. GALLBLADDER: No identified stones by CT criteria. No inflammatory changes to suggest cholecystitis. ADRENAL GLANDS: No significant masses or asymmetry. RIGHT KIDNEY AND URETER: No solid masses. No significant calcifications. No hydronephrosis or hyd roureter. LEFT KIDNEY AND URETER: No solid masses. No significant calcifications. No hydronephrosis or hydr oureter. AORTA AND VESSELS: No aneurysm. No dissection. Renal arteries, SMA, celiac without stenosis. RETROPERITONEUM: No retroperitoneal adenopathy, hemorrhage or masses. BOWEL AND PERITONEAL CAVITY: No masses or inflammatory changes. No free fluid or peritoneal masses. G-tube is in place. APPENDIX: Normal. PELVIS: Small enhancing right adnexal lesion most likely ovarian cyst. This measures 1.[address] ABDOMINAL WALL: No masses. No hernias. BONES: No significant or acute findings. OTHER: No other significant finding. IMPRESSION: Small right ovarian cysts as described. No other significant findings in the abdomen or pelvis. G-tube is in place. TECHNICAL DOCUMENTATION: JOB ID: [id number] Quality ID # [id number]: Final reports with documentation of one or more dose reduction techniques (e.g., Au tomated exposure control, adjustment of the mA and/or kV according to patient size, use of iterative reconstruction technique) 2010 [email or web address]- All Rights Reserved Reading location - IP/workstation name: [email or web address]
[2019-11-25] MEDS ORDERED: LIDOCAINE 2% VISCOUS SOLN 15 ML UDCUP PO ONE (15:06)
[2019-11-25] MEDS ORDERED: METOCLOPRAMIDE HCL ORAL SOLN 10 MG/10 ML UDCUP PO ONE (15:06)
[2019-11-25] MEDS ORDERED: MAG HYDROX/AL HYDROX/SIMETH SUSP 30 ML UDCUP PO ONE (15:06)
== END 2019-11-25 16:01 | disposition home or self-care (01) ==
LOC: ER 11:31
DX: R14.0 Abdominal distension (gaseous) (principal); R11.2 Nausea with vomiting, unspecified; K59.00 Constipation, unspecified; R10.13 Epigastric pain; R10.816 Epigastric abdominal tenderness; F17.200 Nicotine dependence, unspecified, uncomplicated; J45.909 Unspecified asthma, uncomplicated; Z93.1 Gastrostomy status; Z91.030 Bee allergy status; Z91.040 Latex allergy status
CPT/HCPCS: 36415; 74177; 80053; 81001; 81025; 83690; 85025; 85652; 86140; 99284

== ENCOUNTER 2020-05-24 18:39 | Emergency (ER) | payer MEDICAID ==
[2020-05-24] MEDS ORDERED: NORMAL SALINE 1000 ML 1,000 ML IV ONE (18:55)
--- NOTE | 2020-05-24 18:59 | ER Document Report ---
ED Medical Screen (RME) - General Chief Complaint: Slurred Speech Stated Complaint: SLURRED SPEECH Primary Care Provider: LEATHA SHIN DO [Primary Care Provider] - Follow up as needed Notes: Patient also has history patient is a 39-year-old female who presents emergency department with a chief complaint of slurred speech. Patient states that her slurred speech started 4 days ago. Patient states that she stopped taking her phentermine 2 days ago. She also states that she started to have a cough and generally has not felt well. EMS came to her house and they thought it was a panic attack. Patient still does not feel well. Exam: Equal strength in upper and lower extremities. I have greeted and performed a rapid initial assessment of this patient. A comprehensive ED assessment and evaluation of the patient, analysis of test r esults and completion of medical decision making process will be conducted by an additional ED providers. TRAVEL OUTSIDE OF THE [place] IN LAST 30 DAYS: No - Related Data Allergies/Adverse Reactions: beeswax Allergy (Verified 11/25/19 12:34) Latex, Natural Rubber Allergy (Verified 11/25/19 12:34) acetaminophen [From Percocet] Adverse Reaction (Verified 11/25/19 12:34) Pruritis grass pollen Adverse Reaction (Verified 11/25/19 12:34) oxycodone [From Percocet] Adverse Reaction (Verified 11/25/19 12:34) Pruritis Past Medical History - Past Medical History Cardiac Medical History: Denies: Hx Coronary Artery Disease, Hx Heart Attack, Hx Hypertension Pulmonary Medical History: Reports: Hx Asthma - MODERATE Denies: Hx Bronchitis, Hx COPD, Hx Pneumonia Neurological Medical History: Denies: Hx Cerebrovascular Accident, Hx Seizures Renal/ Medical History: Denies: Hx Peritoneal Dialysis Musculoskeltal Medical History: Denies Hx Arthritis Psychiatric Medical History: Reports: Hx Anxiety, Hx Depression, Hx Post Traumatic Stress Disorder Past Surgical History: Reports: Hx Section - Immunizations Hx Diphtheria, Pertussis, Tetanus Vaccination: Yes Physical Exam - Vital signs Vitals: Temp Pulse Resp BP Pulse Ox 99.1 F 102 H 22 H 126/80 H 99 05/24/20 18:43 05/24/20 18:43 05/24/20 18:43 05/24/20 18:43 05/24/20 18:43 Course - Vital Signs Vital signs: Temp Pulse Resp BP Pulse Ox 99.1 F 102 H 22 H 126/80 H 99 05/24/20 18:43 05/24/20 18:43 05/24/20 18:43 05/24/20 18:43 05/24/20 18:43 Doctor's Discharge - Discharge Referrals: LEATHA SHIN DO [Primary Care Provider] - Follow up as needed
[2020-05-24 20:40] LABS: ABSOLUTE BASOPHILS # (AUTO) 0.1 10^3/uL (0.0-0.2); ABSOLUTE EOSINOPHILS # (AUTO) 0.2 10^3/uL (0.0-0.6); ABSOLUTE LYMPHOCYTES (AUTO) 1.6 10^3/uL (0.5-4.7); ABSOLUTE MONOCYTES (AUTO) 0.8 10^3/uL (0.1-1.4); ABSOLUTE NEUT (AUTO) 5.5 10^3/uL (1.7-8.2); EOSINOPHILS % (AUTO) 2.6 % (0-6); HEMATOCRIT 43.4 % (36.0-47.0); HEMOGLOBIN 14.9 g/dL (12.0-15.5); LYMPHOCYTES % (AUTO) 19.7 % (13-45); MEAN CORPUSCULAR HEMOGLOBIN 33.3 pg (27.0-33.4); MEAN CORPUSCULAR HGB CONC 34.3 g/dL (32.0-36.0); MEAN CORPUSCULAR VOLUME 97 fl (80-97); MONOCYTES % (AUTO) 9.5 % (3-13); PLATELET COUNT 241 10^3/uL (150-450); RED BLOOD COUNT 4.46 10^6/uL (3.72-5.28); RED CELL DISTRIBUTION WIDTH 12.6 % (11.5-14.0); SEGMENTED NEUTROPHILS % (AUTO) 67.2 % (42-78); TOTAL CELLS COUNTED % (AUTO) 100 %; WHITE BLOOD COUNT 8.1 10^3/uL (4.0-10.5)
[2020-05-24] MEDS ORDERED: DIAZEPAM INJ 10 MG/2 ML DISP.SYRIN IV ONE (20:56)
[2020-05-24 20:58] LABS: ALBUMIN 4.6 g/dL (3.5-5.0); ALKALINE PHOSPHATASE 94 U/L (38-126); ANION GAP 8 (5-19); ASPARTATE AMINO TRANSFERASE 30 U/L (14-36); BILIRUBIN,DIRECT 0.5 mg/dL (0.0-0.4); BILIRUBIN,TOTAL 0.5 mg/dL (0.2-1.3); BLOOD UREA NITROGEN 10 mg/dL (7-20); CALCIUM 9.4 mg/dL (8.4-10.2); CARBON DIOXIDE 29 mmol/L (22-30); CHLORIDE 100 mmol/L (98-107); GLUCOSE 101 mg/dL (75-110); POTASSIUM 4.1 mmol/L (3.6-5.0); TOTAL PROTEIN 7.6 g/dL (6.3-8.2)
[2020-05-24 21:00] LABS: ALCOHOL < 10 mg/dL (NONE DETECTED)
[2020-05-24] MEDS ORDERED: ACETAMINOPHEN 325 MG TABLET ONE (21:02)
[2020-05-24] MEDS: ACETAMINOPHEN 325 MG TABLET PO ONE ×2 (21:03→21:06)
--- NOTE | 2020-05-24 21:04 | ER Document Report ---
ED General - General Chief Complaint: Shortness Of Breath Stated Complaint: SLURRED SPEECH Time Seen by Provider: 05/24/20 20:44 Primary Care Provider: LEATHA SHIN DO [Primary Care Provider] - Follow up as needed TRAVEL OUTSIDE OF THE [place] IN LAST 30 DAYS: No - HPI Context: This is a 39-year-old female presenting with a chief complaint of slurred speech. Patient states that the symptoms started around 430 this morning. The patient stated that she happened to wake up and noticed that she was having problems with her speech. Patient states that she called EMS and they went to the house twice. From what I can ascertain of the history the patient states that after the first trip the EMS crew deemed this is probably some type of anxiety attack and when they were called again they brought her into the emergency department for further evaluation. The patient's speech does not seem to be slurred so much as it is stammering. Patient keeps her eyes closed but is able to speak and is able to respond to questions as well as spontaneously carry on conversation. Patient has no facial droop and there does not appear to be any upper or lower extremity weakness according to the patient. Patient states that she is not having any pain but she has noticed numbness and tingling around her mouth and that her tongue feels thick. Furthermore she states that she feels numbness and tingling in her hands. Patient denies any illicit drug use. Patient denies any prior history of the same symptoms. Patient states nothing worsens the symptoms and nothing alleviates the symptoms. Patient denies loss of sense of taste or loss of sense of smell. Patient denies known contact with COVID positive persons or persons under investigation for COVID-19. Oddly while there was no mention made of administering pain medication to the patient because she denied pain, this MD mentioned trying an anxiety medication. The patient made a point of saying that she cannot tolerate pain medications because she has a "weird reaction." Associated symptoms: Other - See HPI Exacerbated by: Other - See HPI Relieved by: Other - See HPI Similar symptoms previously: No Recently seen / treated by doctor: No - Related Data Allergies/Adverse Reactions: beeswax Allergy (Verified 11/25/19 12:34) Latex, Natural Rubber Allergy (Verified 11/25/19 12:34) acetaminophen [From Percocet] Adverse Reaction (Verified 11/25/19 12:34) Pruritis grass pollen Adverse Reaction (Verified 11/25/19 12:34) oxycodone [From Percocet] Adverse Reaction (Verified 11/25/19 12:34) Pruritis Past Medical History - General Information source: Patient - Social History Smoking Status: Current Some Day Smoker Frequency of alcohol use: None Family History: Reviewed & Not Pertinent Patient has homicidal ideation: No - Past Medical History Cardiac Medical History: Denies: Hx Coronary Artery Disease, Hx Heart Attack, Hx Hypertension Pulmonary Medical History: Reports: Hx Asthma - MODERATE Denies: Hx Bronchitis, Hx COPD, Hx Pneumonia Neurological Medical History: Denies: Hx Cerebrovascular Accident, Hx Seizures Renal/ Medical History: Denies: Hx Peritoneal Dialysis Musculoskeletal Medical History: Denies Hx Arthritis Psychiatric Medical History: Reports: Hx Anxiety, Hx Depression, Hx Post Traumatic Stress Disorder Past Surgical History: Reports: Hx Section - Immunizations Hx Diphtheria, Pertussis, Tetanus Vaccination: Yes Review of Systems - Review of Systems Constitutional: No symptoms reported EENT: No symptoms reported Cardiovascular: No symptoms reported Respiratory: No symptoms reported Gastrointestinal: No symptoms reported Genitourinary: No symptoms reported Female Genitourinary: No symptoms reported Musculoskeletal: No symptoms reported Skin: No symptoms reported Hematologic/Lymphatic: No symptoms reported Neurological/Psychological: See HPI -: Yes All other systems reviewed and negative Physical Exam - Vital signs Vitals: Temp Pulse Resp BP Pulse Ox 99.1 F 102 H 22 H 126/80 H 99 05/24/20 18:43 05/24/20 18:43 05/24/20 18:43 05/24/20 18:43 05/24/20 18:43 - Notes Notes: CONSTITUTIONAL Patient appears to be in no acute distress. Patient does stammer or stutter when she speaks. Patient keeps her eyes closed when speaking. Patient does not appear to be in any acute distress. Patient is alert and oriented x3. HEAD [Atraumatic, Normocephalic.] EYES [Eyes are normal to inspection, No discharge from eyes, Extraocular muscles intact, Sclera are normal, Conjunctiva are normal.] ] NECK [Normal ROM, No jugular venous distention, No meningeal signs, no carotid bruit.] RESPIRATORY CHEST [Chest is nontender, Breath sounds normal, No respiratory distress.] CARDIOVASCULAR [RRR, No murmurs, Normal S1 S2, No rub, No gallop.] ABDOMEN [Abdomen is nontender, No pulsatile masses, No other masses, Bowel sounds normal, No distension, No peritoneal signs, No hernias.] BACK [There is no CVA Tenderness, There is no tenderness to palpation, Normal inspection.] UPPER EXTREMITY [Inspection normal, No cyanosis, No clubbing, No edema, 2+ radial pulses.] LOWER EXTREMITY [Inspection normal, No cyanosis, No clubbing, No edema, No calf tenderness, 2+ femoral pulses.] NEURO [No focal motor deficits, No focal sensory deficits, Speech normal.] SKIN [Skin is warm, Skin is dry, Skin is normal color.] LYMPHATIC [No adenopathy in neck.] PSYCHIATRIC [Normal affect. ] Course - Re-evaluation Re-evalutation: 05/24/20 22:58 Results of ED MSE discussed with patient. Patient's constellation of symptoms are unusual and do not fit any pattern that this MD is aware of. Her symptoms are not consistent with stroke, not consistent with MS, do not appear to be specific to any particular dystonic reaction, etc. The patient's head CT and lab work are all were unremarkable. The patient was informed that we do not have a in-house neurologist but she could be referred to an outpatient neurologist. Patient was informed that while her symptoms may be disconcerting to her, there is appears to be no evidence of a life or limb threatening emergency based on our evaluation. All questions were answered prior to discharge. Emergency signs and symptoms, reasons to return to the emergency department discussed with patient. 05/24/20 23:00 Patient was also informed that she was tested for COVID 19. Precautions in terms of social distancing, isolation, and other precautions discussed with patient. - Vital Signs Vital signs: Temp Pulse Resp BP Pulse Ox 97.7 F 85 14 115/57 L 100 05/24/20 22:20 05/24/20 22:20 05/24/20 22:20 05/24/20 22:20 05/24/20 22:20 - Laboratory Result Diagrams: 05/24/20 20:23 05/24/20 20:23 Laboratory results interpreted by me: 05/24/20 20:23 Sodium 136.9 L Direct Bilirubin 0.5 H - Diagnostic Test Radiology reviewed: Reports reviewed Discharge - Discharge Clinical Impression: Speech disturbance Qualifiers: Speech disturbance type: unspecified speech disturbance Qualified Code(s): R47.9 - Unspecified speech disturbances Condition: Stable Disposition: HOME, SELF-CARE Additional Instructions: Return to the Emergency Department without delay if any worse. HOME CARE INSTRUCTIONS & INFORMATION: Thank you for choosing us for your medical needs. We hope you're satisfied with the care you received. After you leave, you must properly care for your problem and, at the same time, observe its progress. Any condition can change. Some illnesses can change rapidly over hours or days. If your condition worsens, return to the Emergency Department or see your physician promptly. ABOUT YOUR X-RAYS AND EKG'S: If you had an EKG or X-rays taken, they have been read by the Emergency Physician. The X-rays and EKG's will also be read by a Radiologist or Hydraulic Plumber within 24 hours. If discrepancies are noted, you will be notified by telephone. Please be certain the ED has a correct telephone number & address where you can be reached. Also, realize that some fractures or abnormalities do not show up on initial X-rays. If your symptoms continue, see your physician. ABOUT YOUR LABORATORY TEST: If you had laboratory tests, the results have been reviewed by the Emergency Physician. Some test results (for example cultures) may not be available for several days. You will be contacted if any test result shows you need additional treatment. Please be certain the ED has a correct telephone number and address where you can be reached. ABOUT YOUR MEDICATIONS: You will receive instructions on how to take your medic ine on the prescription label you receive. Additional information may be provided by the Pharmacy. If you have questions afterwards, call the ED for clarification or further instructions. Some prescribed medications may cause drowsiness. Do not perform tasks such as driving a car or operating machinery without consulting your Pharmacist. If you feel you need a refill of pain medication, your condition will need re-evaluation. Please do not call for a refill of any medication. ABOUT YOUR SIGNATURE: Signature of this document acknowledges to followin. Understanding that you received emergency treatment and that you may be released before al medical problems are known or treated. Please be certain the ED has a correct phone number & address where you can be reached. 2. Acknowledgement that you will arrange for follow-up care as recommended. 3. Authorization for the Emergency Physician to provide information to your follow-up Physician in order to maximize your care. AT ANY TIME, IF YOUR SYMPTOMS CHANGE SIGNIFICANTLY OR WORSEN OR YOU DEVELOP NEW SYMPTOMS, RETURN TO THE EMERGENCY DEPARTMENT IMMEDIATELY FOR RE-EVALUATION. OUR GOAL IS TO PROVIDE EXCELLENT MEDICAL CARE! WE HOPE THAT WE HAVE MET YOUR EXPECTATIONS DURING YOUR EMERGENCY DEPARTMENT VISIT AND THAT YOU FEEL YOU HAVE RECEIVED EXCELLENT CARE! Referrals: LEATHA SHIN DO [Primary Care Provider] - Follow up as needed JESSY HUDSON MD [NO LOCAL MD] - Follow up as needed
[2020-05-24 21:07] LABS: A TYPE INFLUENZA AG NEGATIVE (NEGATIVE); B INFLUENZA AG NEGATIVE (NEGATIVE)
--- NOTE | 2020-05-24 21:15 | RADIOLOGY REPORT (SQ) ---
EXAM DESCRIPTION: XR CHEST 1 VIEW COMPLETED DATE/TME: 05/24/2020 18:55 CLINICAL HISTORY: 39 years, Female, cough COMPARISON: Prior study from 11/16/2018 NUMBER OF VIEWS: One TECHNIQUE: Single frontal view of the chest was obtained portably LIMITATIONS: None. FINDINGS: Cardiac and mediastinal contours are stable. Lungs are clear. No pleural effusion or pneumothorax. IMPRESSION: No acute disease. copyright 2010 [employer]- All Rights Reserved
[2020-05-24 21:24] LABS: APPEARANCE,URINE SLIGHTLY-CLOUDY; BILIRUBIN,URINE NEGATIVE (NEGATIVE); COLOR,URINE YELLOW; GLUCOSE, URINE NEGATIVE (NEGATIVE); KETONES,URINE NEGATIVE (NEGATIVE); LEUKOCYTE ESTERASE,URINE NEGATIVE (NEGATIVE); NITRITE,URINE NEGATIVE (NEGATIVE); PROTEIN,URINE NEGATIVE (NEGATIVE); UROBILINOGEN,URINE NEGATIVE mg/dL (<2.0)
[2020-05-24 21:37] LABS: URINE AMPHETAMINES SCREEN NEGATIVE; URINE BARBITURATES SCREEN NEGATIVE; URINE BENZODIAZEPINES SCREEN NEGATIVE; URINE COCAINE SCREEN NEGATIVE; URINE MARIJUANA (THC) SCREEN NEGATIVE; URINE METHADONE SCREEN NEGATIVE; URINE PHENCYCLIDINE SCREEN NEGATIVE
--- NOTE | 2020-05-24 21:48 | RADIOLOGY REPORT (SQ) ---
INDICATION: intermittent slurred speech x 16 hours. COMPARISON: July 29, 2017 CORRELATION: None TECHNIQUE: Noncontrast spiral axial CT images were obtained from the skull base to vertex. This exam was performed according to our departmental dose-optimization program, which includes automated exposure control, adjustment of the mA and/or kV according to patient size and/or use of iterative reconstruction techniques. FINDINGS: There is no evidence of acute intracranial hemorrhage, midline shift, mass effect or mass lesion. Mosher-white differentiation is normal. There is no evidence of acute large territory infarct. Ventricles and extracerebral spaces are within normal limits, for age. The visualized paranasal sinuses are grossly clear. The orbits and eyeballs are unremarkable. The mastoid air cells are clear. Skull base and calvarium appear intact. IMPRESSION: No acute intracranial process is identified. The cause of the patient's speech disturbance is not identified on this examination.
[2020-05-24 23:58] VITALS: BP 113/66
== END 2020-05-24 23:59 | disposition home or self-care (01) ==
LOC: ER 18:39
DX: R47.9 Unspecified speech disturbances (principal); Z20.828 Contact with and (suspected) exposure to other viral communicable diseases; Z91.040 Latex allergy status
CPT/HCPCS: 99285; 96361; 96374; 36415; 87070; 87880; 80307 ×2; 85025; 87635; 80053; 81001; 87804; 71045; 70450; J3360; J7030; C9803